=== PATIENT | female | born 1950 | race Caucasian/White ===

== ENCOUNTER → 2022-11-26 | Outpatient (CLI) | payer MEDICARE, SELFPAY ==
--- NOTE | 2022-11-26 11:45 | BRBX_PTH ---
PATIENT: STEPH CHENG LOC: [facility] U#:[id number] AGE/SX: 72/F ROOM: RE11/26/[address]: Dr. Maxime Sofia MD : 1950 BED: DIS: 11/26/2022 SPEC #: [id number] RECD: 11/26/22 12:15 STATUS: CHRISTA BINTA #: [id number] JUNIOR: 11/26/22 11:[address]: Maxime Sofia DEPT: SURGICAL PATHOLOGY RECD BY: Alexandria Brewster ENTERED: 11/26/22 13:38 SP TYPE: BREAST BX OTHR DR: Dr. Stefano Soares MD Tissues: Right breast, NOS Procedures: Surgery Specimen Level IV HEADER OPERATION: Right breast stereotactic needle core biopsy PRE-OP DIAGNOSIS: Right breast upper outer quadrant microcalcifications TISSUE SUBMITTED: Right breast ISCHEMIC TIME: 2 minutes FIXATION TIME: 7.5 hours MICROSCOPIC DIAGNOSIS Right breast, upper outer quadrant, stereotactic core biopsy: Fibroadenoma with clustered banal microcalcifications. Fibrocystic change with associated banal microcalcifications. Focal intraductal hyperplasia without atypia. No evidence of malignancy. AM:saurav 11/27/2022 MICROSCOPIC DESCRIPTION Slides are reviewed. GROSS DESCRIPTION Received in fixative is one container labeled with the patient's name and designated right breast. The specimen consists of multiple elongated fragments of pak-yellow fibroadipose tissue that in aggregate measure 5.0 x 3.0 x 0.6 cm. The entire specimen is submitted in four cassettes. / MANUEL:saurav 11/26/2022 TC:5 CPT: 90201
--- NOTE | 2022-11-26 16:41 | PCM.OPRPT ---
Problems Associated Problem List Diagnoses (1) Microcalcifications of the breast: Report of Operation Date of Procedure: 11/26/22 Pre-Operative Diagnosis: Microcalcifications right breast Post-Operative Diagnosis: Same Surgery/Procedure Performed:: Right stereotactic breast biopsy Surgeon: Maxime Sofia dental laboratory assistant: None Type of Anesthesia: Local Description of Procedure: Patient was brought into the mammography unit. Placed in the prone position on the fissure table right breast was brought down through the opening. Cc view was obtained. Microcalcifications were identified. ?15 degree views were obtained. I targeted on the microcalcifications. I prepped the breast with Betadine. I injected local. Skin janki was placed. Placed a needle in the prefire position. Took 2 more stereo views showing the area to be adequately targeted. Fired the needle. Took 360 degrees circumferential biopsies. X-ray my specimen. Microcalcifications were identified. Backed the needle off 7 mm. Placed a small standard Gelfoam titanium clip. Remove the needle. X-rayed showing the clip to be in good placement. Steri-Strips were placed. Sterile dressings were placed. Standard mammograms were obtained. The patient tolerated the procedure well. Admit VTE Documentation VTE Present on Admission: No VTE Mechan Device Prophylaxis: None VTE Pharm Prophylaxis ordered?: No Reason prophylaxis not ordered:: Treatment Not Indicated
== END | disposition home or self-care (01) ==
LOC: BIRAD 10:47
PROVIDERS: PCP Family Medicine; Referring Provider Surgery; Visit Provider Surgery
DX: R92.8 Other abnormal and inconclusive findings on diagnostic imaging of breast (principal)
CPT/HCPCS: 19081; 88305; J7050; A4648